=== PATIENT | female | born 1930 | race Caucasian/White ===

== ENCOUNTER 2017-10-04 09:49 | Outpatient (CLI) | payer OTHER ==
[~2017-10-04 09:49] MED LIST: ALPRAZOLAM ER2 MG; CARTIA XT240 MG; CLARITIN10 MG; COZAAR100 MG; ENALAPRIL-HCTZ1 TAB; FLAGYL500MG PO; KETO10TA2 PO; NEURONTIN300 MG PO; PERCOCET 5/3251 TAB PO; PRAVACHOL10 MG; PRAVASTATIN SOD20 MG PO; PROTONIX40 MG PO; SYNTHROID50 MCG; VALTREX1000 MG PO; VASOTEC20 M1; XANAX1 MG PO; ZANTAC300 MG
== END 2017-10-04 10:34 | disposition home or self-care (01) ==
LOC: MAMO-SONO 09:49
DX: Z12.31 Encounter for screening mammogram for malignant neoplasm of breast (principal); Z87.898 Personal history of other specified conditions; N63.10 Unspecified lump in the right breast, unspecified quadrant; N63.20 Unspecified lump in the left breast, unspecified quadrant; C50.311 Malignant neoplasm of lower-inner quadrant of right female breast

== ENCOUNTER 2017-10-17 08:48 | Outpatient (CLI) | payer OTHER | END 2017-10-17 08:54 | disposition home or self-care (01) | LOC: SONOGRAMA 08:48 | DX: N60.11 Diffuse cystic mastopathy of right breast (principal); N60.12 Diffuse cystic mastopathy of left breast ==

== ENCOUNTER → 2018-01-13 | Outpatient (CLI) | payer OTHER | END | disposition home or self-care (01) | LOC: MAMO-SONO 10:45 | DX: C50.411 Malignant neoplasm of upper-outer quadrant of right female breast (principal); C50.311 Malignant neoplasm of lower-inner quadrant of right female breast; N60.11 Diffuse cystic mastopathy of right breast; N60.12 Diffuse cystic mastopathy of left breast ==

== ENCOUNTER 2018-01-29 07:35 | Outpatient (CLI) | payer OTHER | END 2018-01-29 07:41 | disposition home or self-care (01) | LOC: SONOGRAMA 07:35 | DX: R10.84 Generalized abdominal pain (principal) ==

== ENCOUNTER 2018-02-03 07:49 | Outpatient (CLI) | payer OTHER | END 2018-02-03 15:00 | disposition home or self-care (01) | LOC: TOM 07:49 | DX: Z85.3 Personal history of malignant neoplasm of breast (principal); R63.4 Abnormal weight loss; R10.84 Generalized abdominal pain; D49.0 Neoplasm of unspecified behavior of digestive system; K86.2 Cyst of pancreas | CPT/HCPCS: 74178; Q9965 ==

== ENCOUNTER 2018-02-11 10:02 | Outpatient (CLI) | payer OTHER | END 2018-02-11 11:22 | disposition home or self-care (01) | LOC: RAD 501 10:02 | DX: M47.817 Spondylosis without myelopathy or radiculopathy, lumbosacral region (principal); M16.11 Unilateral primary osteoarthritis, right hip; M16.12 Unilateral primary osteoarthritis, left hip ==

== ENCOUNTER 2018-02-18 17:05 | Emergency (ER) | payer OTHER ==
[~2018-02-18] VITALS: Ht 157.5 cm; Wt 66.7 kg
== END 2018-02-18 21:21 | disposition home or self-care (01) ==
LOC: ER 17:05
DX: R42 Dizziness and giddiness (principal)

== ENCOUNTER 2018-02-21 16:11 | Emergency (ER) | payer OTHER ==
[~2018-02-21] VITALS: Ht 170.2 cm; Wt 63.5 kg
== END 2018-02-21 21:46 | disposition home or self-care (01) ==
LOC: ER 16:11
DX: S82.191A Other fracture of upper end of right tibia, initial encounter for closed fracture (principal); K52.89 Other specified noninfective gastroenteritis and colitis; W18.09XA Striking against other object with subsequent fall, initial encounter; Y93.89 Activity, other specified; Y92.018 Other place in single-family (private) house as the place of occurrence of the external cause; Y99.8 Other external cause status

== ENCOUNTER 2018-06-23 09:12 | Emergency (ER) | payer OTHER ==
[~2018-06-23] VITALS: Ht 160 cm; Wt 65.3 kg
[2018-06-23] MEDS ORDERED: MUPIROCIN22 GM TOP (10:13)
[2018-06-23] MEDS ORDERED: LEVAQUIN500 MG PO (10:13)
== END 2018-06-23 10:24 | disposition home or self-care (01) ==
LOC: ER 09:12
DX: S50.811A Abrasion of right forearm, initial encounter (principal); W45.8XXA Other foreign body or object entering through skin, initial encounter; Y93.89 Activity, other specified; Y92.89 Other specified places as the place of occurrence of the external cause; Y99.8 Other external cause status

== ENCOUNTER 2018-08-15 10:52 | Emergency (ER) | payer OTHER ==
[~2018-08-15] VITALS: Ht 157.5 cm; Wt 63.5 kg
[~2018-08-15 10:52] MED LIST changes: +LEVAQUIN500 MG PO; +MUPIROCIN22 GM TOP
[2018-08-15] MEDS ORDERED: VASOTEC10 MG PO (11:18)
[2018-08-15] MEDS ORDERED: SYNTHROID50 MCG PO (11:18)
[2018-08-15] MEDS ORDERED: COZAAR100 MG PO (11:20)
[2018-08-15] MEDS ORDERED: LETROZOLE2.5 MG (11:20)
[2018-08-15] MEDS ORDERED: PRAVASTATIN SOD20 MG PO (11:23)
[2018-08-15] MEDS ORDERED: DRAMAMINE LESS25 MG PO (11:23)
[2018-08-15] MEDS ORDERED: XANAX2 MG PO (11:24)
== END 2018-08-15 20:43 | disposition home or self-care (01) ==
LOC: ER
DX: R42 Dizziness and giddiness (principal)

== ENCOUNTER 2018-09-16 09:50 | Outpatient (CLI) | payer OTHER ==
[~2018-09-16 09:50] MED LIST changes: +COZAAR100 MG PO; +DRAMAMINE LESS25 MG PO; +LETROZOLE2.5 MG; +SYNTHROID50 MCG PO; +VASOTEC10 MG PO; +XANAX2 MG PO
== END 2018-09-16 09:56 | disposition home or self-care (01) ==
LOC: MAMO-SONO 09:50
DX: Z12.31 Encounter for screening mammogram for malignant neoplasm of breast (principal); Z87.898 Personal history of other specified conditions; C50.311 Malignant neoplasm of lower-inner quadrant of right female breast; N60.11 Diffuse cystic mastopathy of right breast; N60.12 Diffuse cystic mastopathy of left breast

== ENCOUNTER 2018-10-06 09:47 | Inpatient (IN) | payer OTHER ==
[~2018-10-06] VITALS: Ht 160 cm; Wt 63.5 kg
== END 2018-10-15 12:19 | disposition home or self-care (01) | DRG 305 ==
LOC: ER 09:47 → ICU-2 10-07 06:32 → SEC-K 10-09 06:39 → MEDJ 10-09 08:42
PROVIDERS: ADMIT Internal Medicine Cardiovascular Disease
PROC: 4A12X4Z Monitoring of Cardiac Electrical Activity, External Approach (ICD-10-PCS; principal; 2018-10-09)
PROC: 4A033R1 Measurement of Arterial Saturation, Peripheral, Percutaneous Approach (ICD-10-PCS; 2018-10-10)
PROC: B34JZZZ Ultrasonography of Left Upper Extremity Arteries (ICD-10-PCS; 2018-10-14)
DX: I11.9 Hypertensive heart disease without heart failure (principal); Z85.3 Personal history of malignant neoplasm of breast; I25.10 Atherosclerotic heart disease of native coronary artery without angina pectoris; R06.09 Other forms of dyspnea; S50.812A Abrasion of left forearm, initial encounter; L89.151 Pressure ulcer of sacral region, stage 1